=== PATIENT | female | born 1950 | race Caucasian/White ===

== ENCOUNTER → 2018-02-18 | Outpatient (CLI) | payer MEDICARE, OTHER ==
[~2018-02-18] MED LIST: ATOR20 PO; Aspirin EC81 MG; Aspirin EC81 MG PO; CALCIUM 600 +1 EAC2 PO; METF500C PO; RAMI5 PO
== END ==
LOC: LAB SHORT 10:20 → LAB 10:20
DX: R39.15 Urgency of urination (principal)
CPT/HCPCS: 87086; 87147

== ENCOUNTER → 2018-08-13 | Outpatient (CLI) | payer MEDICARE, OTHER | END | disposition home or self-care (01) | LOC: LAB SHORT 12:41 → LAB 12:41 | DX: R39.15 Urgency of urination (principal) | CPT/HCPCS: 87086; 87147 ==

== ENCOUNTER → 2019-10-24 | Outpatient (CLI) | payer MEDICARE | END | disposition home or self-care (01) | LOC: LAB 15:15 → LAB SHORT 15:15 | DX: R39.15 Urgency of urination (principal) | CPT/HCPCS: 87086; 87147 ==

== ENCOUNTER → 2020-02-23 | Outpatient (CLI) | payer MEDICARE | END | disposition home or self-care (01) | LOC: LAB SHORT 12:20 → LAB EV 12:20 | DX: R30.9 Painful micturition, unspecified (principal) | CPT/HCPCS: 87086 ==

== ENCOUNTER → 2020-03-15 | Outpatient (CLI) | payer MEDICARE, OTHER ==
[2020-03-19 11:07] LABS: HPV 16 Negative (Negative); HPV 18 Negative (Negative); HPV OTHER HR TYPES Negative (Negative)
== END ==
LOC: LAB 13:41 → LAB SHORT 13:41
PROVIDERS: Advanced Practice Midwife
DX: Z01.419 Encounter for gynecological examination (general) (routine) without abnormal findings (principal)
CPT/HCPCS: 87624; G0123

== ENCOUNTER 2021-01-09 08:31 | Day surgery (SDC) | payer MEDICARE, OTHER | END 2021-01-09 23:07 | disposition home or self-care (01) | LOC: MOI MAM 08:31 | DX: C50.912 Malignant neoplasm of unspecified site of left female breast (principal); Z17.0 Estrogen receptor positive status [ER+]; R92.8 Other abnormal and inconclusive findings on diagnostic imaging of breast | CPT/HCPCS: 19081; 88305; 88342; 88360; A4648 ==

== ENCOUNTER 2021-01-30 08:32 | Day surgery (SDC) | payer MEDICARE, OTHER ==
[~2021-01-30 08:32] MED LIST changes: +CALCIUM 600 +1 EA11 PO; -CALCIUM 600 +1 EAC2 PO
== END 2021-01-30 23:56 | disposition home or self-care (01) ==
LOC: RAD 08:32 → MOI US 08:32
DX: D05.12 Intraductal carcinoma in situ of left breast (principal)
CPT/HCPCS: 19281; A4648

== ENCOUNTER 2021-02-01 08:27 | Day surgery (SDC) | payer MEDICARE, OTHER ==
[~2021-02-01] VITALS: Ht 165.1 cm; Wt 77.7 kg
--- NOTE | 2021-02-01 09:17 | NUR ---
Ambulatory in Day Surgery History, Chart, Medications and Allergies reviewed before start of procedure.Pre-Op teaching done. Pt verbalizes understanding. Patient confirms NPO status and agrees with scheduled surgery.
--- NOTE | 2021-02-01 09:37 | NUR ---
2 ATTEMPTS AT IV BY ORD.RMA, 3RD BY [email or web address]
--- NOTE | 2021-02-01 12:09 | NUR ---
Discharge instructions reviewed with patient. Patient verbalizes understanding. Copy given to patient to take home. Patient States Post-Procedure ride home has been arranged. Discharged via wheelchair to private car for ride home. HOME WITH ALL BELONGINGS
--- NOTE | 2021-02-04 07:20 | NUR ---
02/04/21 0720 Aaliyah Meza VERIFICATIONS: EDIT CHART.
== END 2021-02-01 23:22 | disposition home or self-care (01) ==
LOC: ORSCMMR 08:27 → ORD 09:45 → ORSCMMR 09:45
PROVIDERS: Surgery
PROC: 0HBU0ZZ Excision of Left Breast, Open Approach (ICD-10-PCS; principal; 2021-02-01 09:45)
DX: D05.12 Intraductal carcinoma in situ of left breast (principal); Z17.0 Estrogen receptor positive status [ER+]; I10 Essential (primary) hypertension; E78.5 Hyperlipidemia, unspecified; E11.9 Type 2 diabetes mellitus without complications; Z79.84 Long term (current) use of oral hypoglycemic drugs; Z79.82 Long term (current) use of aspirin
CPT/HCPCS: 82947; 88307; 88342; J0690; J1100; J2250; J2370; J2405; J2704; J3010; J7120

== ENCOUNTER 2021-03-01 07:38 | Day surgery (SDC) | payer MEDICARE, OTHER ==
[~2021-03-01] VITALS: Ht 170.2 cm; Wt 76.7 kg
--- NOTE | 2021-03-01 10:49 | NUR ---
Discharge instructions reviewed with patient. Patient verbalizes understanding. Copy given to patient to take home. Dressing to procedure site clean, dry, intact with no visible drainage, swelling, erythema or bruising noted.
--- NOTE | 2021-03-01 11:12 | NUR ---
Discharged via wheelchair to private car for ride home.
== END 2021-03-01 11:14 | disposition home or self-care (01) ==
LOC: ORSCMMR 07:38 → ORD 09:00 → ORSCMMR 11:14
PROVIDERS: Surgery
PROC: 0HBU0ZX Excision of Left Breast, Open Approach, Diagnostic (ICD-10-PCS; principal; 2021-03-01 09:00)
PROC: 0HBU0ZZ Excision of Left Breast, Open Approach (ICD-10-PCS; principal; 2021-03-01 09:00)
DX: D05.12 Intraductal carcinoma in situ of left breast (principal); I10 Essential (primary) hypertension; E11.9 Type 2 diabetes mellitus without complications; Z79.899 Other long term (current) drug therapy
CPT/HCPCS: 82947; 88307; A9270; J0690; J1100; J2250; J2405; J2704; J3010; J7120

== ENCOUNTER 2021-03-22 05:57 | Day surgery (SDC) | payer MEDICARE, OTHER ==
[~2021-03-22] VITALS: Ht 165.1 cm; Wt 76.4 kg
[~2021-03-22 05:57] MED LIST changes: +Apple Cider Vi300 MG PO; +FISH OIL PO
--- NOTE | 2021-03-22 06:45 | NUR ---
Ambulatory in Day Surgery. History, Chart, Medications and Allergies reviewed before start of procedure. Lungs clear T/O to Auscultation. Patient confirms NPO status and agrees with scheduled surgery. Pre-Op teaching done. Pt verbalizes understanding. Patient States Post-Procedure ride home has been arranged.
--- NOTE | 2021-03-22 11:06 | NUR ---
Patient up to Ambulate independently. Gait steady. Discharge instructions reviewed with patient. Patient verbalizes understanding. Copy given to patient to take home, WELL DAUGHTER INCLUDING CARLA DRAIN. GIVEN ICE BAG AND CUP FOR MEASURING CARLA TO RECORD DAILY. Patient States Post-Procedure ride home has been arranged. Discharged via wheelchair to private car for ride home.
== END 2021-03-22 11:06 | disposition home or self-care (01) ==
LOC: ORSCMMR 05:57 → ORD 07:30 → ORSCMMR 11:06
PROVIDERS: Surgery
PROC: 0HBU0ZZ Excision of Left Breast, Open Approach (ICD-10-PCS; principal; 2021-03-22 07:30)
PROC: 07B60ZX Excision of Left Axillary Lymphatic, Open Approach, Diagnostic (ICD-10-PCS; principal; 2021-03-22 07:30)
DX: D05.12 Intraductal carcinoma in situ of left breast (principal); D36.0 Benign neoplasm of lymph nodes; I10 Essential (primary) hypertension; E78.5 Hyperlipidemia, unspecified; E11.9 Type 2 diabetes mellitus without complications; Z79.4 Long term (current) use of insulin; Z79.899 Other long term (current) drug therapy; Z79.82 Long term (current) use of aspirin
CPT/HCPCS: 82947; 88307; A9270; J0690; J1100; J1885; J2250; J2405; J2704; J3010; J7120

== ENCOUNTER 2021-08-15 07:58 | Day surgery (SDC) | payer MEDICARE, OTHER ==
[~2021-08-15] VITALS: Ht 165.1 cm; Wt 74.8 kg
[2021-08-15] MEDS ORDERED: ANAS1 PO (08:37)
--- NOTE | 2021-08-15 09:07 | NUR ---
08/15/21 0907 Yisel Montoya CALL LIGHT WITHIN REACH
== END 2021-08-15 10:18 | disposition home or self-care (01) ==
LOC: ORSCSDS 07:58
PROVIDERS: Surgery
PROC: 0DJD8ZZ Inspection of Lower Intestinal Tract, Via Natural or Artificial Opening Endoscopic (ICD-10-PCS; principal; 2021-08-15 09:15)
DX: Z12.11 Encounter for screening for malignant neoplasm of colon (principal); E78.5 Hyperlipidemia, unspecified; E11.9 Type 2 diabetes mellitus without complications; Z79.82 Long term (current) use of aspirin; Z79.84 Long term (current) use of oral hypoglycemic drugs; Z79.899 Other long term (current) drug therapy
CPT/HCPCS: 82947; J2704; J7120